=== PATIENT | female | born 1955 | race Caucasian/White ===

== ENCOUNTER 2025-06-23 14:04 | Inpatient (IN) | payer MEDICARE, MEDICAID ==
[~2025-06-23] VITALS: Ht 157.5 cm; Wt 50.0 kg
[~2025-06-23 14:04] MED LIST: LIDO-52 TOP
--- NOTE | 2025-06-23 14:50 | RADIOLOGY REPORT ---
EXAM: DI CHEST,SINGLE VIEW Indication: pain Technique: Single frontal view of the chest was obtained Comparison: None FINDINGS: Lines and Tubes: None Lungs: Diffuse interstitial opacities Pleura: No effusion. No pneumothorax. Cardiomediastinal contours: Unremarkable Bones: No acute osseous abnormality. IMPRESSION: Diffuse interstitial opacities suggestive of atypical infection or pulmonary edema.
--- NOTE | 2025-06-23 14:54 | RADIOLOGY REPORT ---
CLINICAL INDICATION: HIP PAIN TECHNIQUE: 1 radiographic views of the pelvis and 2 views of the left hip were obtained. Comparison: None FINDINGS/IMPRESSION: Impacted left femoral neck fracture.
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
[2025-06-23] MEDS ORDERED: potassium Cl 20 mEq SR tablet PO PRN ×2 (15:40)
[2025-06-23] MEDS ORDERED: HYDROcodone/acetaminophen 10/325mg tab PO PRN (15:40)
[2025-06-23] MEDS ORDERED: mag hydrox/Alum hydrox/simeth 30ml oral suspension PO PRN (15:40)
[2025-06-23] MEDS ORDERED: magnesium sulf-water 2g/50mL 50 ML IV PRN (15:40)
[2025-06-23] MEDS ORDERED: HYDROcodone/acetaminophen 5mg/325mg tablet PO PRN (15:40)
[2025-06-23] MEDS ORDERED: magnesium sulf-water 4G/100mL 100 ML IV PRN (15:40)
[2025-06-23] MEDS ORDERED: HYDROmorphone inj. 0.5 MG/0.5 ML DISP.SYRIN IV PRN (15:40)
[2025-06-23] MEDS ORDERED: magnesium hydroxide 30ml (MOM) UD suspension PO PRN (15:40)
[2025-06-23] MEDS ORDERED: potassium Cl 40MEQ/1/2NS 520ml 520 ML IV PRN (15:40)
[2025-06-23] MEDS ORDERED: HYDROmorphone/PF 0.2 MG/ML SYRINGE IV PRN (15:40)
[2025-06-23] MEDS: normal saline 1000ml 1,000 ML IV SCH (15:40)
--- NOTE | 2025-06-23 15:47 | ELECTROCARDIOGRAPH REPORT ---
[facility] Test Date: 2025-06-23 Test Time: 15:44:24 Pat Name: MEGAN CANNON Department: [facility]-ER Patient ID: [facility]-[id number] Room: Gender: F Control Panel Tester: : 1955 Requested By: TIFFANY ONTIVEROS Order Number: [id number] Reading MD: Measurements Intervals Lawrence Rate: 69 P: 73 ME: 156 QRS: 72 QRSD: 104 T: 73 QT: 439 QTc: 471 Interpretive Statements Sinus rhythm Probable left atrial enlargement Left ventricular hypertrophy Nonspecific T abnrm, anterolateral leads Please click the below link to view image of tracing.
[2025-06-23] MEDS ORDERED: ENAL20TA36 PO (15:53)
[2025-06-23] MEDS ORDERED: LEVO100T9 PO (15:53)
[2025-06-23] MEDS ORDERED: METO25TA6 PO (15:53)
[2025-06-23 16:26] LABS: MEAN PLATELET VOLUME 7.3 FL (7.4-10.4); RED CELL DISTRIBUTION WIDTH 14.3 % (11.5-14.5)
[2025-06-23 16:53] LABS: CREATININE 1.01 MG/DL (0.40-0.90); TOTAL CARBON DIOXIDE 27.4 MMOL/L (24-32); eCRCL 41 ML/MIN; eGFR 54 ML/MIN
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
[2025-06-23] MEDS: K and/or MAG REPLACEMENT MC SCH (20:00)
--- NOTE | 2025-06-23 20:28 | RADIOLOGY REPORT ---
History: Left femoral neck fracture Further eval for surg intervention approach Comparison Study: None Technique: Multidetector spiral CT of the pelvis was performed from iliac crests to pubic symphysis. 100 cc of intravenous contrast was administered during this examination. Portal venous imaging was obtained. Axial, coronal and sagittal multiplanar reformats were performed by the technologist on a separate workstation. Radiation Dose : Findings: There is a non displaced acute transcervical fracture involving the left femoral neck. No additional fractures identified. The bones are demineralized. Mild degenerative changes of the bilateral sacroiliac joints. Large colonic stool burden. Francois catheter within a decompressed urinary bladder. Atherosclerotic bebo cifications within the aorta. IMPRESSION: 1. Acute non displaced left transcervical femoral neck fracture. 2. Demineralized Bones 3. Large colonic stool burden
[2025-06-23] MEDS: docusate sod 100mg capsule PO SCH (21:04)
[2025-06-23] MEDS: hydrALAZINE 20mg/ml inj. IV PRN (21:04)
[2025-06-23] MEDS: ibuprofen tablet 400 MG TABLET PO PRN (21:09)
[2025-06-23] MEDS: metoprolol succinate 25mg (24-HOUR) SR. Tablet PO SCH (22:40)
[2025-06-23 23:20] VITALS: BP 156/68; PULSE 87; RESP 14; TEMP 97.5; O2SAT 92
[2025-06-24] VITALS (30 sets, daily range): BP systolic 116–178; BP diastolic 43–126; PULSE 71–100; RESP 12–20; TEMP 97.7–98.1; O2SAT 90–100
[2025-06-24] MEDS: ondansetron/PF 4mg/2ml inj IV PRN (02:32)
[2025-06-24 05:25] LABS: MEAN PLATELET VOLUME 7.4 FL (7.4-10.4); RED CELL DISTRIBUTION WIDTH 14.3 % (11.5-14.5)
[2025-06-24 05:55] LABS: CREATININE 0.95 MG/DL (0.40-0.90); TOTAL CARBON DIOXIDE 26.1 MMOL/L (24-32); eCRCL 44 ML/MIN; eGFR 58 ML/MIN
[2025-06-24] MEDS: pantoprazole 40mg Tablet.DR PO SCH (08:25)
[2025-06-24] MEDS ORDERED: bisacodyl 10mg suppository rectal RC PRN (08:50)
[2025-06-24] MEDS: levoTHYROXINE 100mcg tablet PO SCH (12:06)
[2025-06-24] MEDS: CEFAZOLIN IV ONE (15:05)
[2025-06-24] MEDS: [UNRECOGNIZED DRUG - OTHER] IV ONE (15:05)
[2025-06-24] MEDS ORDERED: labetalol 20mg/4ml (5mg/ml) syringe IV PRN (15:10)
[2025-06-24] MEDS: ringers solution, lacted 1,000 ML IV SCH (15:10)
[2025-06-24] MEDS ORDERED: HYDROmorphone/PF 0.2 MG/ML SYRINGE IV PRN ×2 (15:10)
[2025-06-24] MEDS ORDERED: ondansetron/PF 4mg/2ml inj IV PRN (15:10)
[2025-06-24] MEDS ORDERED: morphine 4 MG/ML inj SYRINge IV PRN (15:10)
[2025-06-24] MEDS ORDERED: hydrALAZINE 20mg/ml inj. IV PRN (15:10)
[2025-06-24] MEDS ORDERED: propofol inj 20 ML IV ONE (15:26)
[2025-06-24] MEDS ORDERED: midazolam 1 mg/ML 2ml injection ONE (15:26)
[2025-06-24] MEDS ORDERED: fentaNYL/PF 50MCG/1 ML 2ML syringe ONE ×2 (15:26→16:08)
[2025-06-24] MEDS ORDERED: ePHEDrine 50MG/ML INJ. ONE (15:29)
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
--- NOTE | 2025-06-24 17:21 | OPERATIVE REPORT ---
Operative Report Providers to ~ Date of Procedure: Jun 24, 2025 Pre-Operative Diagnosis: Femoral neck fracture Post-Operative Diagnosis SAME as PRE-Op Procedure Performed Multiple pinning left hip Surgeon: Hamilton Cisneros MD Masonry Instructor None Anesthesiologist: Amado Oneill Type of Anesthesia: General Findings: Minimally impacted slightly osteoporotic femoral neck fracture left hip Complications None Prosthetics\Implants used: Accu Med cannulated screws 6.5 x 85, 6.5 x 80, 7.3 x 85 Estimated Blood Loss: Less than 50 mL Specimen Removed: None Description of Procedure: Patient was taken to the operating room after I had obtained informed consent she was given prophylactic antibiotics I had signed her left hip. Once in the operating room she was placed in the Tinnie traction table after general anesthetic had been provided her right leg was placed in a traction boot with slight traction her left leg was placed in a traction boot was manipulated with traction to adjust and position of the hip and the anatomic position under fluoroscopic exam. The left hip was now prepped and draped in usual sterile orthopaedic fashion under fluoroscopic guidance after a lateral incision was made guide pins were placed in the femoral head one superior central into inferior one posterior one anterior to get excellent purchase instability of the femoral head. The incision was a lateral incision distal to the greater trochanter measuring a pproximately 4 in in the splitting of the iliotibial band to aid in placement of the pins. Once the pins were placed they were advanced while under fluoroscopic guidance to the femoral head keeping within the confines of the femoral head. Using multiple views AP oblique and lateral and internal and external rotation views to ensure that they pins were for with interval confines of the femoral head and the fracture was stable. Closure was accomplished after antibiotic irrigation and closure of the iliot ibial band with [id number] sutures of 0. Vicryl subcuticular closure was accomplished with 2-0 Vicryl the skin was closed with skin karthikeyan and sealed with Dermabond skin glue. Sterile dressings island dressing was applied patient was now taken off the on the table after being extubated taken to the recovery room in stable condition good distal pulses and capillary refill to the toes were present. Counts repoted as correct: Yes HAMILTON CISNEROS MD Jun 24, 2025 17:21
[2025-06-24] MEDS: acetaminophen 1,000mg/100ml IV 100 ML IV PRN (17:44)
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
[2025-06-24] MEDS ORDERED: non-formulary drug (Metoprolol Tartrate 1 TAB) PO SCH (20:00)
[2025-06-24] MEDS: HYDROcodone/acetaminophen 10/325mg tab PO PRN (21:51)
[2025-06-24] MEDS: aspirin 81mg, enteric-coated 1 TAB TABLET.DR PO SCH (21:51)
[2025-06-24] MEDS: ceFAZolin/D5W- 1GM premix 50 ML IV SCH (23:38)
[2025-06-25 02:00] VITALS: BP 123/71; PULSE 97; RESP 15; TEMP 99.5; O2SAT 93
[2025-06-25 05:27] VITALS: BP 170/83
[2025-06-25 05:32] LABS: MEAN PLATELET VOLUME 7.6 FL (7.4-10.4); RED CELL DISTRIBUTION WIDTH 14.5 % (11.5-14.5)
[2025-06-25 06:00] VITALS: BP 149/76; PULSE 92; RESP 14; TEMP 98.9; O2SAT 94
[2025-06-25 06:04] LABS: CREATININE 0.81 MG/DL (0.40-0.90); TOTAL CARBON DIOXIDE 25.6 MMOL/L (24-32); eCRCL 52 ML/MIN; eGFR 70 ML/MIN
[2025-06-25 10:00] VITALS: BP 133/67; PULSE 86; RESP 16; TEMP 96.8; O2SAT 95
[2025-06-25] MEDS: bisacodyl 10mg suppository rectal RC STA (10:00)
[2025-06-25 18:00] VITALS: BP 170/83; PULSE 90; RESP 21; TEMP 97.9; O2SAT 94
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
[2025-06-25 22:00] VITALS: BP 142/67; PULSE 101; RESP 16; TEMP 97.6; O2SAT 99
[2025-06-26] VITALS (8 sets, daily range): BP systolic 141–185; BP diastolic 75–96; PULSE 97–108; RESP 12–19; TEMP 97.4–98.6; O2SAT 92–95
[2025-06-26 06:12] LABS: MEAN PLATELET VOLUME 7.8 FL (7.4-10.4); RED CELL DISTRIBUTION WIDTH 14.2 % (11.5-14.5)
[2025-06-26 06:30] LABS: CREATININE 0.66 MG/DL (0.40-0.90); TOTAL CARBON DIOXIDE 25.8 MMOL/L (24-32); eCRCL 64 ML/MIN; eGFR 89 ML/MIN
[2025-06-26] MEDS: HYDROcodone/acetaminophen 5mg/325mg tablet PO PRN (08:23)
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
--- NOTE | 2025-06-26 14:39 | ELECTROCARDIOGRAPH REPORT ---
[facility] Test Date: 2025-06-26 Test Time: 12:54:38 Pat Name: MEGAN CANNON Department: ORTHO/NEURO Room: ORTHO [facility] [place] Gender: F Disease Management Nurse: Leeanna Barahona : 1955 Requested By: BARBARA VALERIO Order Number: [id number] Reading MD: Dr. CONNER He Measurements Intervals [place] Rate: 104 P: 79 W[place]: 176 QRS: 63 QRSD: 77 T: 59 QT: 359 QTc: 473 Interpretive Statements Sinus tachycardia Right atrial enlargement Consider left ventricular hypertrophy Electronically Signed On 06-27-2025 20:19:[address] CONNER He Please click the below link to view image of tracing.
[2025-06-27 06:00] VITALS: BP 146/69; PULSE 91; RESP 17; TEMP 98.2; O2SAT 92
[2025-06-27 06:20] LABS: MEAN PLATELET VOLUME 7.7 FL (7.4-10.4); RED CELL DISTRIBUTION WIDTH 14.0 % (11.5-14.5)
[2025-06-27 06:48] LABS: CREATININE 0.78 MG/DL (0.40-0.90); TOTAL CARBON DIOXIDE 28.6 MMOL/L (24-32); eCRCL 54 ML/MIN; eGFR 73 ML/MIN
[2025-06-27 08:04] VITALS: RESP 16
[2025-06-27 08:22] VITALS: BP_SYST 127; PULSE 97
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
== END 2025-06-27 10:20 | DRG 481 ==
LOC: ER 14:04 → ED HOLD 15:50 → ORTHO 4S 23:05
PROVIDERS: ADMIT Family Medicine; ATTEND Family Medicine
PROC: BW211ZZ Computerized Tomography (CT Scan) of Abdomen and Pelvis using Low Osmolar Contrast (ICD-10-PCS; 2025-06-23)
PROC: 0QS704Z Reposition Left Upper Femur with Internal Fixation Device, Open Approach (ICD-10-PCS; principal; 2025-06-24 15:24)
DX: S72.092A Other fracture of head and neck of left femur, initial encounter for closed fracture (principal); M80.052A Age-related osteoporosis with current pathological fracture, left femur, initial encounter for fracture; S06.0XAA Concussion with loss of consciousness status unknown, initial encounter; G89.11 Acute pain due to trauma; E03.9 Hypothyroidism, unspecified; I12.9 Hypertensive chronic kidney disease with stage 1 through stage 4 chronic kidney disease, or unspecified chronic kidney disease; N18.9 Chronic kidney disease, unspecified; J45.909 Unspecified asthma, uncomplicated; W01.0XXA Fall on same level from slipping, tripping and stumbling without subsequent striking against object, initial encounter; Y93.01 Activity, walking, marching and hiking; Z66 Do not resuscitate; Z80.1 Family history of malignant neoplasm of trachea, bronchus and lung; Z79.899 Other long term (current) drug therapy; Z80.3 Family history of malignant neoplasm of breast; Z80.42 Family history of malignant neoplasm of prostate; Y92.89 Other specified places as the place of occurrence of the external cause; Y99.8 Other external cause status
CPT/HCPCS: 36415; 71045; 72192; 73502; 76000; 80053; 82948; 83735; 84439; 84443; 84480; 85025; 87081; 93005; 97110; 97161; 97530; 99285; A4615; A4618; A6449; A7000; C1713; C1769; G0378; J0131; J0360; J0690; J2250; J2270; J2405; J2704; J3010; J3490; J7030; J7120